=== PATIENT | male | born 1955 | race Caucasian/White ===

== ENCOUNTER 2016-05-22 10:21 | Emergency (ER) | payer OTHER ==
--- NOTE | ~2016-05-22 | EKG ---
PATIENT: NUBIA ACEVEDO UNIT #: [id number] Ventricular Rate: 80 BPM Atrial Rate: 80 BPM P-R Interval: 176 ms QRS Duration: 116 ms Q-T Interval: 426 ms QTC Calculation(Bezet): 491 ms P [place]: 68 degrees Calculated R [place]: 96 degrees Calculated T [place]: -35 degrees Diagnosis Line: Sinus rhythm with frequent Premature ventricular Diagnosis Line: complexes Diagnosis Line: Rightward axis Diagnosis Line: Possible Inferior infarct (cited on or before Diagnosis Line: 09-FEB-2016) Diagnosis Line: T wave abnormality, consider lateral ischemia Diagnosis Line: Abnormal ECG Diagnosis Line: When compared with ECG of 09-FEB-2016 07:27, Diagnosis Line: Non-specific change in ST segment in Lateral leads Diagnosis Line: T wave inversion more evident in Inferior leads Diagnosis Line: Inverted T waves have replaced nonspecific T wave Diagnosis Line: abnormality in Lateral leads Diagnosis Line: Confirmed by TED GUPTA MD ([id number]) on 05/23/2016 Diagnosis Line: 7:53:12 PM INTERPRETING MD: CANDY BISWAS
--- NOTE | ~2016-05-22 | CT4 ---
[facility] A Service of [facility] RADIOLOGY TEXT RESULTS PATIENT: NUBIA ACEVEDO LOCATION: [place] : 55 UNIT #: [id number] AGE: [address]: Twan Multani MD SEX: M ORDER DR: [id number] [facility]. [place], [place] [address] [id number] MR#: [id number] Acc #: [id number] NAME: NUBIA ACEVEDO : 1955 SEX: M STUDY DATE/TIME: 05/22/2016 11:31 UNIT: [facility] ROOM: STUDY DESCRIPTION: CT Abd and Pelv Wo Cont Attending Physician: Twan Multani M.D. Ordering Physician: Twan Multani M.D. Primary Care Physician: No Primary Care Physician MEDICAL IMAGING REPORT This report is preliminary unless electronic signature is present EXAM CT abdomen and pelvis without contrast INDICATIONS Nausea, vomiting, generalized abdominal pain and constipation for the past [address] of the abdomen and pelvis. TECHNIQUE This CT exam was performed with one or more of the following radiation dose reduction techniques: automatic control, adjustment of mA and/or kV according to patient size, and iterative reconstruction. COMPARISON None FINDINGS There are trace bilateral pleural effusions. Mild cardiomegaly. ABDOMEN WITHOUT CONTRAST: The liver spleen kidneys adrenal glands pancreas unremarkable. Cholelithiasis. Bowel loops are nondilated appendix is normal. No radiodense urinary system calculus or hydronephrosis. PELVIS WITHOUT CONTRAST: There is a trace amount of pelvic fluid. No pelvic mass or radiodense bladder mass. No aggressive appearing bone lesion. IMPRESSION 1. No acute findings. 2. Cholelithiasis. The gallbladder is contracted but shows no other finding to suggest active inflammation. [facility] A Service of [facility] RADIOLOGY TEXT RESULTS PATIENT: NUBIA ACEVEDO LOCATION: [facility] : 55 UNIT #: [id number] AGE: [address]: Twan Multani MD SEX: M ORDER DR: 3. Trace amount of fluid in the pelvis and small bilateral pleural effusions. Dictated by... Gordon Galdamez M.D. THIS IS AN ELECTRONICALLY VERIFIED REPORT Gordon Galdamez M.D. at 05/23/2016 6:51 AM CATHLEEN/eder TD: 05/22/2016 14:11 JOB #: [id number] MEDICAL IMAGING REPORT Page 1 of 1 COPY
[2016-05-22 10:02] LABS: POC - CKMB 2.4 ng/mL (0.0-7.9); POC - TROPONIN <0.05 ng/mL (<=0.05)
[2016-05-22 10:08] LABS: BASOPHIL# 0.1 X10e3 (0-0.3); BASOPHIL% 0.5 % (0-2.5); EOSINOPHIL# 0.1 X10e3 (0-0.7); EOSINOPHIL% 1.1 % (0.0-7.0); HEMATOCRIT 45.2 % (38.0-50.0); HEMOGLOBIN 14.3 gm/dL (13.0-16.0); LYMPHOCYTE# 0.9 X10e3 (1.0-3.5); LYMPHOCYTE% 8.4 % (17.0-45.0); MEAN CORPUSCULAR HEMOGLOBIN 27.6 PG (28-34); MEAN CORPUSCULAR HGB CONC 31.7 g/dL (30-36); MEAN PLATELET VOLUME 11.8 FL (6.5-11.5); MONOCYTE# 0.8 X10e3 (0-1.0); MONOCYTE% 7.1 % (3.0-12.0); NEUTROPHIL# 9.2 X10e3 (1.5-7.1); NEUTROPHIL% 82.9 % (40-75); RED CELL DISTRIBUTION WIDTH 15.9 % (11.0-15.5); WHITE BLOOD COUNT 11.1 X10e3 (4.0-10.5)
[~2016-05-22 10:21] MED LIST: ACETAMINOPHEN PO; ALDACTONE25 MG PO; ALLERCLEAR10 MG PO; AMOX TR-K CLV 81 TA1 PO; ASPIRIN81 M2 PO; ASPIRIN81 MG PO; BMP (LAB); BUMEX1 MG PO; BUMEX2 MG PO; CLARITIN10 M2 PO; COREG12.5 MG PO; COREG3.125 MG PO; COREG6.25 MG PO; COZAAR25 MG PO; DIGOX0.125 MG PO; DIGOXIN PO; DIGOXIN125 MCG PO; FUROSEMIDE40 MG PO; IBUPROFEN800 MG PO; IMDUR-ER30 M1 PO; JANUVIA PO; K-DUR20 ME1 PO; LANTUS100 U/ML SUBQ; LANTUS100 UNITS/ SUBQ; LEVAQUIN PO; LEVAQUIN750 M1 PO; LEVAQUIN750 MG PO; LEVEMIR SUBQ; LEVEMIR100 U/ML SUBQ; LISINOPRIL10 MG PO; LISINOPRIL5 MG PO; LOPRESSOR PO; MAG-OX 400400 M1 PO; MAG-OX 400400 MG PO; MAGNESIUM400 MG PO; METOCLOPRAMIDE H5 MG PO; METOPROLOL TAR25 MG PO; METOPROLOL TART25 MG PO; NEURONTIN100 MG PO; NIFEREX-150 CAP1 CAP PO; NOVOLOG7030 SUBQ; NYSTATIN5 ML PO; PERCOCET 5-3251 TAB PO; PERCOCET 5/321 UDTAB PO; POTASSIUM CHLO10 ME1 PO; PREDNISONE PO; PREDNISONE10 MG PO; PROAIR HFA8.5 GM IH; PROAIR HFA8.5 GM INH; SIMVASTATIN20 MG PO; SIMVASTATIN40 MG PO; SPIRIVA18 MCG INH; SYMBICORT 160/4.6 GM IH; SYMBICORT 160/4.6 GM INH; SYMBICORT INH; TESSALON PERLE100 M1 PO; ZESTRIL10 M1 PO; ZOCOR PO
[2016-05-22 10:28] LABS: DIFF IND YES
[2016-05-22 10:32] LABS: PLATELET ESTIMATE DECREASED (NORMAL)
[2016-05-22 10:33] LABS: ALBUMIN SERUM 3.4 g/dL (3.5-5.0); BILIRUBIN, DIRECT 0.4 mg/dL (0.0-0.2); BILIRUBIN,INDIRECT 1.2 mg/dL (0.0-0.9); BILIRUBIN,TOTAL 1.6 mg/dL (0.2-2.0); BUN/CREATININE RATIO 16.47; CALCIUM SERUM 8.7 mg/dL (8.4-10.2); CREATININE SERUM 1.7 mg/dL (0.6-1.4); GLOM FILT RATE Estimated 42.6 mL/min (>60); POTASSIUM 4.6 mmol/L (3.5-5.1); PROTEIN TOTAL SERUM 6.4 g/dL (6.0-8.3)
[2016-05-22 10:34] LABS: RBC NORMAL YES
[2016-05-22 10:35] LABS: PLATELET COUNT 90 X10e3 (140-420)
[2016-05-22 11:45] LABS: POC - CKMB 3.7 ng/mL (0.0-7.9); POC - TROPONIN <0.05 ng/mL (<=0.05)
[2016-05-22 12:14] LABS: URINE SOURCE CLEAN CATCH
[2016-05-22 12:20] LABS: URINE APPEARANCE CLEAR; URINE BLOOD NEG (NEG); URINE COLOR DK YELLOW; URINE GLUCOSE NEG (NEG); URINE KETONE TRACE (NEG); URINE LEUKOCYTE ESTERASE 1+ (NEG); URINE NITRATE NEG (NEG); URINE PROTEIN 2+ (NEG); URINE SPECIFIC GRAVITY 1.019 (1.003-1.035)
[2016-05-22 12:22] LABS: CULTURE INDICATED? YES; URINE BACTERIA AUWI NEG (NEGATIVE); URINE SQUAMOUS EPITHELIAL CELL OCC /[HPF]
[2016-05-22 12:34] LABS: URINE BILIRUBIN NEG (NEG)
[2016-05-22 12:36] LABS: U HYALINE CASTS AUWI 50-100 /[LPF]
[2016-05-22 12:37] LABS: URBCS1 AUWI 0-2 /[HPF] (0-2); URINE GRANULAR CAST 0-2 /[HPF]
[2016-05-22 12:42] LABS: URINE TRANSITIONAL EPI CELLS OCCAS /[HPF]
[2016-06-07] MEDS ORDERED: ASPIRIN ENTERI325 M1 PO
== END 2016-05-22 13:36 | disposition home or self-care (01) ==
LOC: CED 10:21
PROVIDERS: Emergency Medicine
DX: N30.00 Acute cystitis without hematuria (principal); E11.9 Type 2 diabetes mellitus without complications; I50.9 Heart failure, unspecified; F17.200 Nicotine dependence, unspecified, uncomplicated
CPT/HCPCS: 36415; 74176; 80048; 80076; 81003; 82150; 82553; 83690; 84484; 85025; 87086; 93005; 96374; 99284; J2405

== ENCOUNTER 2016-06-07 16:03 | Inpatient (IN) | payer OTHER ==
--- NOTE | ~2016-06-07 | CR63 ---
[facility] A Service of [facility] RADIOLOGY TEXT RESULTS PATIENT: NUBIA ACEVEDO LOCATION: [facility] 566- : 55 UNIT #: [id number] AGE: [address]: Griselda Villareal MD SEX: M ORDER DR: [id number] [facility] [address] [facility]. [place], [place] [address] [id number] I MR#: [id number] Acc #: [id number] NAME: NUBIA ACEVEDO : 1955 SEX: M STUDY DATE/TIME: 06/14/2016 0816 UNIT: [facility] ROOM: [facility] STUDY DESCRIPTION: CR Chest 2 View Attending Physician: Griselda Villareal M.D. Ordering Physician: Cecy Oshea A.P.R.N. Primary Care Physician: No Primary Care Physician MEDICAL IMAGING REPORT This report is preliminary unless electronic signature is present EXAM Chest, 2 views, 06/14/2016, 0816 hours. CLINICAL HISTORY 61-year-old man with shortness of air and cough for 1 week. History of COPD and diabetes and hypertension. COMPARISON 06/07/2016 FINDINGS Portable upright chest demonstrates median sternotomy change with moderate cardiomegaly, tortuous aorta, and pacer device unchanged. There is pulmonary venous distension and bilateral interstitial change, likely stable to increased from prior exam. Findings suggest an element of edema. No effusion seen. IMPRESSION Stable moderate cardiomegaly and pacer device. There is pulmonary venous distension and bilateral interstitial change similar to 06/07/2016. This could represent chronic change or recurrent interstitial edema. There is no airspace edema or effusion seen. Dictated by... Elda Jackson M.D. THIS IS AN ELECTRONICALLY VERIFIED REPORT Elda Jackson M.D. at 06/14/2016 2:29 PM GARRETT/lev TD: 06/14/2016 14:04 [facility] A Service of [facility] RADIOLOGY TEXT RESULTS PATIENT: NUBIA ACEVEDO LOCATION: [facility] 566-01 : 55 UNIT #: [id number] AGE: [address]: Griselda Villareal MD SEX: M ORDER DR: JOB #: [id number] MEDICAL IMAGING REPORT Page 1 of 1 COPY
--- NOTE | ~2016-06-07 | EKG ---
PATIENT: NUBAI ACEVEDO UNIT #: [id number] Ventricular Rate: 85 BPM Atrial Rate: 85 BPM P-R Interval: 190 ms QRS Duration: 120 ms Q-T Interval: 406 ms QTC Calculation(Bezet): 483 ms P [place]: 64 degrees Calculated R [place]: 56 degrees Calculated T [place]: -35 degrees Diagnosis Line: Sinus rhythm with Premature ventricular complexes Diagnosis Line: T wave abnormality, consider anterolateral Diagnosis Line: ischemia Diagnosis Line: Abnormal ECG Diagnosis Line: When compared with ECG of 08-JUN-2016 06:00, Diagnosis Line: (unconfirmed) Diagnosis Line: No significant change was found Diagnosis Line: Confirmed by TED GUPTA MD ([id number]) on 06/09/2016 Diagnosis Line: 10:50:23 PM INTERPRETING MD: CANDY BISWAS
--- NOTE | ~2016-06-07 | CR72 ---
[facility] A Service of [facility] RADIOLOGY TEXT RESULTS PATIENT: NUBIA ACEVEDO LOCATION: [facility] 566-01 : 55 UNIT #: [id number] AGE: [address]: Griselda Villareal MD SEX: M ORDER DR: [id number] [facility] [address] [facility]. [place], [place] [address] [id number] I MR#: [id number] Acc #: [id number] NAME: NUBIA ACEVEDO : 1955 SEX: M STUDY DATE/TIME: 06/07/2016 15:30 UNIT: [facility] ROOM: 82060 STUDY DESCRIPTION: CR Chest Single View Portable Attending Physician: Griselda Villareal M.D. Ordering Physician: [facility] Primary Care Physician: No Primary Care Physician MEDICAL IMAGING REPORT This report is preliminary unless electronic signature is present EXAM Portable AP view of the chest 06/07/2016 COMPARISON February 08, 2016, September 02, 2015, March 29, 2015. HISTORY 61-year-old male with dyspnea today. Abnormal EKG at his physician's office today. History of hypertension and CABG. FINDINGS Dual lead left chest pacemaker/defibrillator device appears grossly stable without evidence of complication. No evidence of sternotomy dehiscence. Prior CABG again noted. Stable cardiomediastinal silhouette, likely with mild cardiomegaly. There may be dilatation of the main pulmonary artery as well, grossly stable. There are stable interstitial opacities throughout the lungs which may be chronic or may reflect mild pulmonary vascular congestion. No overt pulmonary edema. No significant pleural effusion. No evidence of acute consolidative pneumonia or pneumothorax. IMPRESSION 1. Grossly stable diffuse interstitial opacities throughout the lungs perhaps chronic in nature or reflecting mild pulmonary vascular congestion given the stable cardiomegaly. 2. Stable mild widening of the mediastinum, which may be secondary to enlargement of the pulmonary artery. It is actually noted that the patient had adenopathy in the AP window on CT of March 11, 2015. The main pulmonary artery is also dilated on that exam. On 2015 adenopathy appears stable to diminished in size from CT of February 23, 2014 in the AP window, favoring reactive lymph nodes. Clinical correlation recommended. 3. Prior CABG. [facility] A Service of [facility] RADIOLOGY TEXT RESULTS PATIENT: NUBIA ACEVEDO LOCATION: [facility] 566-01 : 55 UNIT #: [id number] AGE: [address]: Griselda Villareal MD SEX: M ORDER DR: Dictated by... Devin Alex M.D. THIS IS AN ELECTRONICALLY VERIFIED REPORT Devin Alex M.D. at 06/10/2016 2:47 PM LO/quentin TD: 06/07/2016 17:46 JOB #: [id number] MEDICAL IMAGING REPORT Page 1 of 1 COPY
--- NOTE | ~2016-06-07 | DS ---
Unit #: [id number] #: [id number] Patient: NUBIA ACEVEDO [id number] [address] [place], [place] [address] [id number] I MR#: [id number] NAME: NUBIA ACEVEDO ROOM: 566 Age: 61 Sex: M Admission Date: 06/07/2016 : 1955 Discharge Date: 06/15/2016 Attending Physician: Griselda Villareal M.D. Primary Care Physician: No Primary Care Physician DISCHARGE SUMMARY DISCHARGE DIAGNOSES 1. Hypotension. 2. Ischemic cardiomyopathy. 3. Acute on chronic systolic heart failure. 4. Chronic obstructive pulmonary disease exacerbation. 5. Nonsustained V tac. 6. History of AICD. 7. Pulmonary hypertension with RVSP 53 mmHg. 8. Possible obstructive sleep apnea. DISCHARGE MEDICATIONS 1. Magnesium oxide 200 mg b.i.d. 2. Neurontin 800 mg t.i.d. 3. Carvedilol 12.5 mg b.i.d. 4. Bumex 2 mg daily. 5. Lipitor 20 mg at bedtime. 6. Zestril 10 mg daily. 7. Aspirin 81 mg daily. 8. Plavix 75 mg daily. 9. Aldactone 12.5 mg daily. 10. Potassium 10 mEq daily. 11. Symbicort 160 mg 2 puffs b.i.d. HOSPITAL COURSE The patient is a 61-year-old male who was a regular office patient of Dr. Chakraborty. She sent him to the hospital because he did not look well. He states that he went to his appointment because he wanted to get rid of his water pills. He had had some increasing shortness of breath and abdominal distension for two days, as well as some lower extremity edema. He was started on IV Bumex 1 mg IV daily. His breathing improved. He had some periodic three-beat runs of nonsustained V tac. His beta aubree was increased. His potassium and magnesium were stable and he did have a TSH done that was mildly elevated. He had some leukocytosis. Urinalysis was negative. Chest x-ray was performed, that showed cardiomegaly with some venous distension. He had a VQ scan that showed a low likelihood of pulmonary embolus. He had a lower extremity Doppler that was negative for DVT. He was requiring oxygen and was seen by Dr. Jacobs with pulmonary, who gave him three doses of IV Solu-Medrol and placed him on Symbicort and duo-nebs. Echocardiogram this admission showed grade 2 diastolic dysfunction, mild left ventricular hypertrophy. The left ventricular side was normal. The left ventricular systolic function was severely reduced with a left ventricular ejection fraction of 25%. There was a flattened septum in systole and diastole, consistent with right ventricular pressure volume overload. The right ventricle was mildly dilated with mildly Unit #: [id number] #: [id number] Patient: NUBIA ACEVEDO reduced RV function. This brought us to rule out pulmonary embolus with VQ scan. He had moderate tricuspid valve regurgitation with RVSP of 53 mmHg, consistent with moderate pulmonary hypertension. He also had a moderate to severe eccentric mitral valve regurgitation. The patient is euvolemic. He is off oxygen. He does not require home oxygen. FOLLOWUP 1. He is to follow up with Dr. Jacobs in the office as outpatient. 2. He is to follow up with his primary hat maker as an outpatient for his mitral valve regurgitation and medical management. 3. Follow up with primary care physician in a week for hypothyroidism. Dictated by... Deisi Pool APRN for Yusuf Tong TD: 06/16/2016 09:42 JOB #: [id number] DISCHARGE SUMMARY Page 1 of 1 X X DISCHARGE SUMMARY
--- NOTE | ~2016-06-07 | EKG ---
PATIENT: NUBIA ACEVEDO UNIT #: [id number] Ventricular Rate: 93 BPM Atrial Rate: 93 BPM P-R Interval: 192 ms QRS Duration: 112 ms Q-T Interval: 406 ms QTC Calculation(Bezet): 504 ms P [place]: 59 degrees Calculated R [place]: 18 degrees Calculated T [place]: -4 degrees Diagnosis Line: Sinus rhythm with frequent Premature ventricular Diagnosis Line: complexes Diagnosis Line: Nonspecific T wave abnormality Diagnosis Line: Prolonged QT Diagnosis Line: Abnormal ECG Diagnosis Line: When compared with ECG of 22-MAY-2016 09:36, Diagnosis Line: Nonspecific T wave abnormality has replaced Diagnosis Line: inverted T waves in Inferior leads Diagnosis Line: T wave inversion no longer evident in Lateral Diagnosis Line: leads Diagnosis Line: Confirmed by AZRA GARAY MD ([id number]) on Diagnosis Line: 06/09/2016 8:44:54 AM INTERPRETING MD: HAMIDA
--- NOTE | ~2016-06-07 | TH ---
Unit #: [id number] #: [id number] Patient: NUBIA ACEVEDO [id number] [address] [address] [id number] I MR#: [id number] NAME: NUBIA ACEVEDO : 1955 SEX: M STUDY DATE/TIME: 06/10/2016 UNIT: [facility] ROOM: 566 STUDY DESCRIPTION: Attending Physician: Griselda Villareal M.D. CARDIOLOGY REPORT EXAM Resting images only. PROCEDURE Cardiolite 12 mCi was injected. Images were obtained in horizontal and vertical long axis and short axis views. The resting images show severely decreased isotope activity involving the inferior wall. The left ventricle is extremely dilated. CONCLUSION 1. The stress portion of the test was cancelled. 2. The rest images show a severely enlarged left ventricle with decreased isotope activity in the inferior wall. Dictated by... Yusuf Shah TD: 06/10/2016 16:25 JOB #: [id number] CARDIOLOGY REPORT Page 1 of 1 X Griselda Villareal MD <ELECTRONICALLY SIGNED> 08/31/16 1429 CARDIOLOGY REPORT
--- NOTE | ~2016-06-07 | CO ---
Unit #: [id number] #: [id number] Patient: NUBIA ACEVEDO [id number] [facility]. [place], [place] [address] [id number] I MR#: [id number] NAME: NUBIA ACEVEDO ROOM: 566 Age: 61 Sex: M Admission Date: 06/07/2016 : 1955 Attending Physician: Griselda Villareal M.D. Consultation Date: 06/14/2016 CONSULTATION REPORT REASON FOR CONSULTATION Shortness of breath, rule out component of COPD. HISTORY OF PRESENT ILLNESS The patient is a 61-year-old gentleman, who has a history of severe heart disease including coronary artery disease, severe left ventricular dysfunction with an EF of 25%, and mitral regurgitation. He has had increasing shortness of breath. It is primarily dyspnea on exertion. He apparently was seen in Dr. Chakraborty's office and EKG was abnormal and asked to come to the hospital. He has significant heart failure and has been diuresed. He said he had a lot of abdominal and lower extremity swelling and that has improved, but he remains dyspneic on exertion somewhat more than his usual status. He does wheeze on occasion, primarily at night. He does produce white sputum primarily in the mornings. He denies chest pain, hemoptysis, or fever. PAST MEDICAL HISTORY Remarkable for ischemic cardiomyopathy with an EF of about 25%. He had a recent echocardiogram with RVSP estimated at 53. He has moderate to severe mitral regurgitation, mildly calcified aortic valve. He has a history of coronary artery disease, hypertension, hyperlipidemia, and diabetes. There was mention of obstructive sleep apnea, but he did not mention that to me. MEDICATIONS At home Plavix, Coreg, Bumex, Neurontin, aspirin, Plavix, Coreg, Bumex. He has an albuterol inhaler. He takes maybe b.i.d. and a nebulizer that he rarely takes. He is not on oxygen. ALLERGIES Tylenol, unknown reaction. SOCIAL HISTORY He smokes and has for most of his life, although he has quit intermittently. FAMILY HISTORY No familial lung disease. REVIEW OF SYSTEMS No fever, chills, weight loss. No chest pain or palpitations. He has had this abdominal "swelling" and that has improved. No melena, hematochezia, hematemesis, hematuria, dysuria, focal weakness, paresthesias. He has had Unit #: [id number] #: [id number] Patient: NUBIA ACEVEDO some leg swelling, but that has improved. No real leg pain. No pleurisy or hemoptysis. Further review of systems negative. He does snore. PHYSICAL EXAMINATION GENERAL: Reveals a patient, who is comfortable, lying in bed. VITAL SIGNS: He is afebrile. Pulse 79, respiratory rate is 18, blood pressure is 102/72. 5 foot 9 and 205 pounds. His weight is remarkably stable since admission. HEENT: Pupils are equal, round, and reactive to light. Sclerae anicteric. Head atraumatic. NECK: Supple. No supraclavicular or cervical adenopathy appreciated. Jugular venous pressures are elevated. He then at approximately 50 degree angle in bed. CHEST: No definite wheeze, stridor, or consolidation. He does have decreased breath sounds. CARDIAC: Reveals regular rate and rhythm. Loud systolic murmur throughout his precordium. ABDOMEN: Soft and nontender. There is some dullness. Could have some ascites, certainly not tense ascites. EXTREMITIES: Reveal no clubbing, cyanosis, or edema. No calf tenderness. SKIN: Warm and dry without rash or diaphoresis. Mucous membranes are moist. He has a Mallampati class III oropharynx. DIAGNOSTIC STUDIES LABORATORY RESULTS: Reveals echo as above. Creatinine is 1.6. BNP 458. INR was normal. D-dimer mildly elevated at 546. CBC essentially normal except for platelet count of 82. He has had thrombocytopenia in the past. Of note, sputum in March of this year was normal charli. IMAGING STUDIES: Chest x-ray, fairly significant cardiomegaly. I do not appreciate any acute infiltrates. Formal report is pending. V/Q scan was personally reviewed. He does have occasional subsegmental defect on the perfusion, but it is matched with ventilation. Ventilation to my review is consistent with emphysema. Preliminary report is low probability. Rhythm strips are sinus. IMPRESSION Shortness of breath, most likely, major component is cardiac with his severe cardiomyopathy and valvular heart disease. I suspect he does have some degree of chronic obstructive pulmonary disease with his longstanding tobacco use, wheezing, and sputum production. Other problems include chronic kidney disease, thrombocytopenia, coronary artery disease, diabetes, hyperlipidemia, hypertension, etc. I also believe he has sleep apnea with his snoring and cardiomyopathy and pulmonary hypertension with an estimated RVSP of 53. PLAN Maximize pulmonary status. A very brief course of steroids. Add inhaled corticosteroids/long-acting beta agonist. Continue albuterol as needed. Complete the workup for VTE with lower extremity venous Dopplers, but I suspect that will be negative. He will benefit from outpatient PFTs and nocturnal polysomnography. Certainly, no smoking is a great benefit. Of note, he had room air oxygenation checked and he had saturations at 96% resting, 93% with ambulation. Thank you very much for allowing me to participate in the care of Mr. Cordero. Unit #: [id number] #: [id number] Patient: NUBIA ACEVEDO Dictated by... Yusuf Clements/tasia TD: 06/15/2016 05:34 JOB #: [id number] CC: Griselda Villareal M.D. CONSULTATION REPORT Page 1 of 1 X Ulises Jacobs MD CONSULTATION REPORT
--- NOTE | ~2016-06-07 | HP ---
Unit #: [id number] #: [id number] Patient: NUBIA LLOYD [id number] [facility] [place]. [place], [place] [address] [id number] I MR#: [id number] NAME: NUBIA LLOYD ROOM: 566 Age: 61 Sex: M Admission Date: 06/07/2016 : 1955 Attending Physician: Griselda Villareal M.D. Primary Care Physician: No Primary Care Physician HISTORY AND PHYSICAL CHIEF COMPLAINT Abnormal EKG and shortness of air. HISTORY OF PRESENT ILLNESS Mr. Lloyd is a 61-year-old who went for a scheduled appointment at his PCP yesterday, Dr. Chakraborty, and patient states that the doctor told him he did not look well. She did an EKG and told him he needed to go to the hospital and be admitted. Patient states further that he went to his appointment because he wanted to get his water pill increased secondary to shortness of air and abdominal distention of 2 days' duration. Patient states that he has been, for the last few days, having orthopnea, dyspnea on exertion, and bilateral lower extremity edema as well as shortness of air. PAST MEDICAL HISTORY 1. COPD. 2. Ischemic cardiomyopathy with AICD. 3. Chronic systolic congestive heart failure with EF 25% to 30%. 4. History of arteriosclerotic heart disease and myocardial infarction with coronary artery bypass grafting x4 in July of 2012. 5. Hypertension. 6. Dyslipidemia. 7. History of stents to the LAD prior to bypass surgery. 8. Diabetes mellitus. 9. Obstructive sleep apnea. 10. Echo September 07, 2014, showed an EF of 25% to 30%, left atrium was severely dilated, right atrium moderately dilated, and rana-dw-soysdawo tricuspid regurgitation, severe mitral regurgitation, right ventricular systolic pressure 30-40. PAST MEDICAL HISTORY Coronary artery bypass grafting with BUTT to the LAD, saphenous vein graft to the PDA, ramus, and diagonal; history of coronary catheterization with PCI and stent to the LAD; AICD, [employer], in January [address] Dixon; and cervical neck surgery due to fracture. HOME MEDICATIONS 1. Plavix 75 mg daily. 2. Coreg 3.125 mg daily. 3. Bumex 1 mg daily. 4. Neurontin 100 mg 3 times daily. 5. Aspirin 325 mg daily. When patient was here in January, he was discharged at that time on Unit #: [id number] #: [id number] Patient: NUBIA LLOYDactone was well as lisinopril as well as Zocor of which are currently not listed as home medications. Patient gets his medications filled at the [facility] on [address]. We will ask that his home medications be verified. CODED ALLERGIES Tylenol. REVIEW OF SYSTEMS No fevers. No chills. Recent urinary tract infection last week and has finished antibiotic therapy. No difficulty swallowing. Positive for dyspnea on exertion and orthopnea. No chest discomfort. No bright red bleeding per rectum. No melena. No hematuria. Positive for lower extremity edema. No difficulties walking. PHYSICAL EXAMINATION GENERAL APPEARANCE: Well developed, well nourished, white male seen in nuclear medicine department in no acute distress. VITAL SIGNS: Temp 98.1; respirations 20; pulse 88; blood pressure 102/82, blood pressure prior to that 124/89 and 119/68; height 5 feet, 4 inches; weight 92.6 kg, and BMI 30. HEENT: Normocephalic and atraumatic. No xanthelasma. Pupils are equal, round, and reactive to light. Extraocular movements intact. NECK: Jugular full. LUNGS: Few crackles in bases. Right base with an expiratory wheeze. HEART: S1 and S2. No S3 or S4. Soft murmur. No lift. PMI nondisplaced. ABDOMEN: Slightly distended. Soft and nontender. EXTREMITIES: Bilateral lower extremity edema, 1+ pitting. Pulses, 2+, bilaterally. SKIN: No rash. SPINE: No scoliosis. DIAGNOSTIC STUDIES IMAGING: Chest x-ray shows grossly stable diffuse interstitial opacities throughout the lungs, perhaps chronic in nature, or reflecting mild pulmonary vascular congestion. Stable mild widening of the mediastinum, which may be secondary to enlargement of the pulmonary artery. Prior CABG. LABORATORY: Chemistry: Sodium 134, potassium 4, chloride 100, CO2 28, BUN 30, creatinine 1.3, glucose 157, magnesium 2, total protein 7.5, albumin 4.1, total bili 1.6, bili direct 0.3, bili indirect 1.3, AST 22, ALT 16, alk phos 103. Troponin 0.05 and 0.05. Cholesterol 175, triglycerides 100, LDL 136, and HDL 19. TSH 7.43. Patient had a TSH done in August of 2015 and, at that time, it was 2.3. PT 12.2, INR 1.2, and PTT 25.3. Point of care troponin less than 0.05. Hemoglobin 14.7, hematocrit 45.6, white blood cell count 11.5, and platelet count 100. History of platelet count 90 in May of 2016 and 121 February 09. ASSESSMENT AND PLAN 1. Acute on chronic systolic congestive heart failure with fluid (1) volume overload. We will add Bumex 1 mg IV twice daily. Patient stated he is feeling better since he received an IV shot in the emergency room. Resting stress portion was done today. Stress portion of test cancelled to be completed at a later date. 2. PVCs with nonsustained VT per monitor, 3 beats. Patient has normal potassium and normal magnesium. We will increase his beta-aubree. 3. Elevated TSH at 7.42. We will add a T3 and T4 to the blood in the lab. Patient appears to have hypothyroidism. 4. Thrombocytopenia. Unit #: [id number] #: [id number] Patient: NUBIA LLOYD 5. Leukocytosis. We will check his urine, BMP, and CBC in the a.m. Urinalysis now. Add free T3 and T4 to blood in lab. Patient is on DVT Lovenox 40 mg daily. We will also decrease his aspirin down to 81 mg daily. Again, we will have his home med rec reconciled with the Cristhian Watkins. to follow for any further recommendations. We will also get a 2D echocardiogram. Dictated by Mignon Aggarwal A.P.R.N. for Cornel Piper M.D. KENYATTA/jeffrey TD: 06/08/2016 10:21 JOB #: [id number] HISTORY AND PHYSICAL Page 1 of 1 X X HISTORY AND PHYSICAL
--- NOTE | ~2016-06-07 | EKG ---
PATIENT: NUBIA ACEVEDO UNIT #: [id number] Ventricular Rate: 92 BPM Atrial Rate: 92 BPM P-R Interval: 188 ms QRS Duration: 110 ms Q-T Interval: 374 ms QTC Calculation(Bezet): 462 ms P [place]: 69 degrees Calculated R [place]: 58 degrees Calculated T [place]: -31 degrees Diagnosis Line: Sinus rhythm with frequent Premature ventricular Diagnosis Line: complexes Diagnosis Line: Nonspecific ST and T wave abnormality Diagnosis Line: Prolonged QT Diagnosis Line: Abnormal ECG Diagnosis Line: When compared with ECG of 07-JUN-2016 15:47, Diagnosis Line: (unconfirmed) Diagnosis Line: No significant change was found Diagnosis Line: Confirmed by AZRA GARAY MD ([id number]) on Diagnosis Line: 06/09/2016 8:50:16 AM INTERPRETING MD: HAMIDA
--- NOTE | ~2016-06-07 | NM69 ---
[facility] A Service of [facility] RADIOLOGY TEXT RESULTS PATIENT: NUBIA ACEVEDO LOCATION: [facility] 566 : 55 UNIT #: [id number] AGE: [address]: Griselda Villareal MD SEX: M ORDER DR: [id number] [facility] [address]. [place], [place] [address] [id number] I MR#: [id number] Acc #: [id number] NAME: NUBIA ACEVEDO : 1955 SEX: M STUDY DATE/TIME: 06/14/2016 8:47 UNIT: [facility] ROOM: [facility] STUDY DESCRIPTION: NM Pulm Vent and Perf Attending Physician: Griselda Villareal M.D. Ordering Physician: Cecy Oshea A.P.R.N. Primary Care Physician: Primary Care Physician No MEDICAL IMAGING REPORT This report is preliminary unless electronic signature is present EXAM Ventilation-perfusion lung scan date 06/14/2016 HISTORY Short of air particularly on exertion for about 1 week, elevated D-dimer. Cough. PROCEDURE Study performed with 28.9 mCi technetium 99m DTPA aerosol by inhalation followed by 5.1 mCi technetium 99m MAA IV. FINDINGS Accompanying chest radiograph shows vascular congestion but no focal infiltrate or effusion. Ventilation and perfusion images both show mild heterogeneity without segmental defect. IMPRESSION Low likelihood ratio for pulmonary embolism. Dictated by... Ezio Caro M.D. THIS IS AN ELECTRONICALLY VERIFIED REPORT Ezio Caro M.D. at 06/17/2016 10:33 AM JUMA/jose rafael TD: 06/14/2016 11:35 JOB #: [id number] MEDICAL IMAGING REPORT Page 1 of 1 COPY
--- NOTE | ~2016-06-07 | US84 ---
[id number] [facility]. [facility] [address]. [place], [place] [address] [id number] I MR#: [id number] Acc #: [id number] NAME: NUBIA ACEVEDO : 1955 SEX: M STUDY DATE/TIME: 06/14/2016 12:18 UNIT: [facility] ROOM: 566 STUDY DESCRIPTION: US LE Veins Complete Juan Manuel Stdy Attending Physician: Griselda Villareal M.D. Ordering Physician: Ulises Jacobs M.D. Primary Care Physician: Primary Care Physician No MEDICAL IMAGING REPORT This report is preliminary unless electronic signature is present EXAM Bilateral lower extremity venous Doppler 06/14/2016 HISTORY Bilateral leg pain and swelling for 7 years with shortness of air for 1 week. COMPARISON None. TECHNIQUE Venous ultrasound examination of both lower extremities was performed using grayscale, spectral Doppler and color flow Doppler imaging. FINDINGS The examination is negative. There is no evidence of deep venous thrombus from the groin to the lower calf bilaterally. Visualized greater saphenous veins are also patent. IMPRESSION Negative examination. No evidence of lower extremity deep venous thrombosis. Dictated by... Ezio Caro M.D. THIS IS AN ELECTRONICALLY VERIFIED REPORT Ezio Caro M.D. at 06/17/2016 10:34 AM JUMA/james TD: 06/14/2016 14:34 JOB #: [id number] MEDICAL IMAGING REPORT Page 1 of 1 COPY
[2016-06-07 15:50] LABS: POC - CKMB 2.7 ng/mL (0.0-7.9); POC - TROPONIN <0.05 ng/mL (<=0.05)
[2016-06-07 16:03] LABS: BASOPHIL% 0.3 % (0-2.5); EOSINOPHIL# 0.1 X10e3 (0-0.7); EOSINOPHIL% 0.9 % (0.0-7.0); HEMATOCRIT 45.6 % (38.0-50.0); HEMOGLOBIN 14.7 gm/dL (13.0-16.0); LYMPHOCYTE# 0.9 X10e3 (1.0-3.5); LYMPHOCYTE% 7.4 % (17.0-45.0); MEAN CELL VOLUME 86.4 FL (83-96); MEAN CORPUSCULAR HEMOGLOBIN 27.8 PG (28-34); MEAN CORPUSCULAR HGB CONC 32.2 g/dL (30-36); MEAN PLATELET VOLUME 11.9 FL (6.5-11.5); MONOCYTE# 0.8 X10e3 (0-1.0); MONOCYTE% 7.2 % (3.0-12.0); NEUTROPHIL# 9.7 X10e3 (1.5-7.1); NEUTROPHIL% 84.2 % (40-75); RED BLOOD COUNT 5.28 X10e (3.90-5.60); RED CELL DISTRIBUTION WIDTH 15.5 % (11.0-15.5); WHITE BLOOD COUNT 11.5 X10e3 (4.0-10.5)
[~2016-06-07 16:03] MED LIST changes: +ASPIRIN ENTERI325 M1 PO
[2016-06-07 16:05] LABS: INR 1.2; PARTIAL THROMBOPLASTIN TIME 25.3 SECONDS (23.5-31.3); PROTHROMBIN TIME (PATIENT) 12.2 SECONDS (9.6-11.5)
[2016-06-07 16:15] LABS: ALBUMIN SERUM 4.1 g/dL (3.5-5.0); BILIRUBIN, DIRECT 0.3 mg/dL (0.0-0.2); BILIRUBIN,INDIRECT 1.3 mg/dL (0.0-0.9); BILIRUBIN,TOTAL 1.6 mg/dL (0.2-2.0); BUN/CREATININE RATIO 23.84; CALCIUM SERUM 9.4 mg/dL (8.4-10.2); CREATININE SERUM 1.3 mg/dL (0.6-1.4); GLOM FILT RATE Estimated 58.9 mL/min (>60); PLATELET COUNT 100 X10e3 (140-420); POTASSIUM 3.6 mmol/L (3.5-5.1); PROTEIN TOTAL SERUM 7.5 g/dL (6.0-8.3)
[2016-06-07 16:16] LABS: DIFF IND NO
[2016-06-07] MEDS ORDERED: COREG3.125 M1 PO (17:34)
[2016-06-07] MEDS ORDERED: CLOPIDOGREL75 MG PO (17:34)
[2016-06-07] MEDS ORDERED: BUMEX1 MG PO (17:35)
[2016-06-07] MEDS ORDERED: MIRAPEX (17:35)
[2016-06-07 21:49] LABS: CK TOTAL 54 IU/L (36-174)
[2016-06-07] MEDS ORDERED: NEURONTIN100 MG PO (23:59)
[2016-06-08 04:11] LABS: BUN/CREATININE RATIO 23.07; CALCIUM SERUM 8.8 mg/dL (8.4-10.2); CREATININE SERUM 1.3 mg/dL (0.6-1.4); GLOM FILT RATE Estimated 58.9 mL/min (>60)
[2016-06-08 12:25] LABS: %MB 7.4 % (0.0-4.0)
[2016-06-08 12:31] LABS: FREE T3 3.5 pg/mL (2.5-3.9)
[2016-06-08 12:35] LABS: FREE THYROXIN (T4) 0.94 ng/dL (0.58-1.64)
[2016-06-08 13:00] LABS: URINE APPEARANCE CLEAR; URINE BILIRUBIN NEG (NEG); URINE BLOOD NEG (NEG); URINE COLOR YELLOW; URINE GLUCOSE NEG (NEG); URINE KETONE NEG (NEG); URINE LEUKOCYTE ESTERASE NEG (NEG); URINE NITRATE NEG (NEG); URINE PH 5.5 (5-8); URINE PROTEIN 2+ (NEG); URINE SPECIFIC GRAVITY 1.011 (1.003-1.035)
[2016-06-08 13:02] LABS: URBCS1 AUWI 0-2 /[HPF] (0-2); URINE BACTERIA AUWI NEG (NEGATIVE); UWBCS1 AUWI 0-2 (0-5)
[2016-06-08 13:18] LABS: CULTURE INDICATED? NO
[2016-06-08 13:20] LABS: URINE SQUAMOUS EPITHELIAL CELL OCCAS /[HPF]
[2016-06-09 11:49] LABS: ALBUMIN SERUM 3.6 g/dL (3.5-5.0); BUN/CREATININE RATIO 26.92; CALCIUM SERUM 8.6 mg/dL (8.4-10.2); CREATININE SERUM 1.3 mg/dL (0.6-1.4); GLOM FILT RATE Estimated 58.9 mL/min (>60); PROTEIN TOTAL SERUM 6.7 g/dL (6.0-8.3)
[2016-06-10 05:47] LABS: HEMOGLOBIN 13.4 gm/dL (13.0-16.0); MEAN CELL VOLUME 86.1 FL (83-96); MEAN CORPUSCULAR HEMOGLOBIN 28.1 PG (28-34); MEAN CORPUSCULAR HGB CONC 32.6 g/dL (30-36); MEAN PLATELET VOLUME 12.3 FL (6.5-11.5); RED BLOOD COUNT 4.76 X10e (3.90-5.60); RED CELL DISTRIBUTION WIDTH 15.9 % (11.0-15.5); WHITE BLOOD COUNT 9.4 X10e3 (4.0-10.5)
[2016-06-10 07:04] LABS: BUN/CREATININE RATIO 28.33; CALCIUM SERUM 8.7 mg/dL (8.4-10.2); CREATININE SERUM 1.2 mg/dL (0.6-1.4); GLOM FILT RATE Estimated 64.9 mL/min (>60)
[2016-06-11 06:24] LABS: HEMATOCRIT 45.6 % (38.0-50.0); HEMOGLOBIN 14.8 gm/dL (13.0-16.0); MEAN CELL VOLUME 86.8 FL (83-96); MEAN CORPUSCULAR HEMOGLOBIN 28.1 PG (28-34); MEAN CORPUSCULAR HGB CONC 32.4 g/dL (30-36); MEAN PLATELET VOLUME 12.2 FL (6.5-11.5); RED BLOOD COUNT 5.26 X10e (3.90-5.60); RED CELL DISTRIBUTION WIDTH 15.8 % (11.0-15.5); WHITE BLOOD COUNT 9.5 X10e3 (4.0-10.5)
[2016-06-11 07:34] LABS: BUN/CREATININE RATIO 21.42; CALCIUM SERUM 9.2 mg/dL (8.4-10.2); CREATININE SERUM 1.4 mg/dL (0.6-1.4); GLOM FILT RATE Estimated 53.9 mL/min (>60); POTASSIUM 4.3 mmol/L (3.5-5.1)
[2016-06-12 10:56] LABS: BUN/CREATININE RATIO 23.57; CALCIUM SERUM 8.7 mg/dL (8.4-10.2); CREATININE SERUM 1.4 mg/dL (0.6-1.4); GLOM FILT RATE Estimated 53.9 mL/min (>60); MAGNESIUM 2.1 mg/dL (1.6-3.0); POTASSIUM 4.3 mmol/L (3.5-5.1)
[2016-06-13 07:31] LABS: BUN/CREATININE RATIO 25.62; CALCIUM SERUM 8.6 mg/dL (8.4-10.2); CREATININE SERUM 1.6 mg/dL (0.6-1.4); GLOM FILT RATE Estimated 45.8 mL/min (>60); POTASSIUM 4.3 mmol/L (3.5-5.1)
[2016-06-14 06:29] LABS: BUN/CREATININE RATIO 26.25; CREATININE SERUM 1.6 mg/dL (0.6-1.4); GLOM FILT RATE Estimated 45.8 mL/min (>60); POTASSIUM 5.1 mmol/L (3.5-5.1)
[2016-06-15 07:24] LABS: BUN/CREATININE RATIO 34.61; CREATININE SERUM 1.3 mg/dL (0.6-1.4); GLOM FILT RATE Estimated 58.9 mL/min (>60); POTASSIUM 5.2 mmol/L (3.5-5.1)
[2016-06-15] MEDS ORDERED: MAGOX 400400 MG PO (11:55)
[2016-06-15] MEDS ORDERED: SYNTHROID25 MCG PO (11:58)
[2016-06-15] MEDS ORDERED: KCL PO (11:59)
[2016-06-15] MEDS ORDERED: LIPITOR20 MG PO (11:59)
[2016-06-15] MEDS ORDERED: COREG12.5 MG PO (12:00)
[2016-06-15] MEDS ORDERED: SYMBICORT INH (12:01)
[2016-06-15] MEDS ORDERED: ALDACTONE PO (12:01)
[2016-06-15] MEDS ORDERED: PROAIR HFA8.5 GM INH (12:03)
[2016-06-15] MEDS ORDERED: ZESTRIL5 MG PO (13:33)
== END 2016-06-15 14:26 | disposition home or self-care (01) | DRG 292 ==
LOC: CED 16:03 → CEDOF 17:05 → C5C 21:17
PROVIDERS: Emergency Medicine; Internal Medicine Cardiovascular Disease; Nurse Practitioner
PROC: B246ZZZ Ultrasonography of Right and Left Heart (ICD-10-PCS; principal; 2016-06-08)
DX: I11.0 Hypertensive heart disease with heart failure (principal); J44.1 Chronic obstructive pulmonary disease with (acute) exacerbation; I95.9 Hypotension, unspecified; D69.6 Thrombocytopenia, unspecified; I27.2 Other secondary pulmonary hypertension; Z95.1 Presence of aortocoronary bypass graft; I25.5 Ischemic cardiomyopathy; E78.5 Hyperlipidemia, unspecified; G47.33 Obstructive sleep apnea (adult) (pediatric); E11.9 Type 2 diabetes mellitus without complications; I25.2 Old myocardial infarction; I25.10 Atherosclerotic heart disease of native coronary artery without angina pectoris; Z95.5 Presence of coronary angioplasty implant and graft; Z79.82 Long term (current) use of aspirin; I50.23 Acute on chronic systolic (congestive) heart failure; I49.3 Ventricular premature depolarization; I08.1 Rheumatic disorders of both mitral and tricuspid valves; Z95.810 Presence of automatic (implantable) cardiac defibrillator; F17.210 Nicotine dependence, cigarettes, uncomplicated
CPT/HCPCS: 71010; 71020; 78451; 78582; 80048; 80053; 80061; 80076; 81003; 82550; 82553; 82947; 83036; 83735; 83880; 84132; 84439; 84443; 84481; 84484; 85025; 85027; 85379; 85610; 85730; 93005; 93306; 93970; 94640; 96374; 99291; A9500; A9540; A9567; J1650; J1815; J1940; J2260; J2270; J2785; J2920

== ENCOUNTER 2016-07-26 13:46 | Inpatient (IN) | payer OTHER ==
--- NOTE | ~2016-07-26 | EKG ---
PATIENT: NUBIA ACEVEDO UNIT #: [id number] Ventricular Rate: 75 BPM Atrial Rate: 75 BPM P-R Interval: 186 ms QRS Duration: 122 ms Q-T Interval: 412 ms QTC Calculation(Bezet): 460 ms P [place]: 64 degrees Calculated R [place]: 45 degrees Calculated T [place]: -118 degrees Diagnosis Line: Sinus rhythm with occasional Premature ventricular Diagnosis Line: complexes Diagnosis Line: Possible Inferior infarct (cited on or before Diagnosis Line: 26-JUL-2016) Diagnosis Line: T wave abnormality, consider lateral ischemia Diagnosis Line: Abnormal ECG Diagnosis Line: When compared with ECG of 26-JUL-2016 13:52, Diagnosis Line: (unconfirmed) Diagnosis Line: No significant change was found Diagnosis Line: Confirmed by JAUN BISWAS, MIKE ([id number]) on Diagnosis Line: 07/28/2016 10:46:23 AM INTERPRETING MD: DANAE
--- NOTE | ~2016-07-26 | DS ---
Unit #: [id number] #: [id number] Patient: NUBIA ACEVEDO [id number] [place], [place] [address] [id number] I MR#: [id number] NAME: NUBIA ACEVEDO ROOM: 559 Age: 61 Sex: M Admission Date: 07/26/2016 : 1955 Discharge Date: 07/30/2016 Attending Physician: Griselda Villareal M.D. Primary Care Physician: Fátima Chakraborty M.D. DISCHARGE SUMMARY DISCHARGE DIAGNOSES 1. Acute on chronic systolic congestive heart failure, last 2D echo June 08, 2016 showed an ejection fraction of 25%, moderate tricuspid regurgitation, [id number]-[id number] mitral regurgitation with elevated right ventricular systolic pressure 53 mmHg. 2. History of coronary artery disease with three-vessel coronary artery bypass grafting. 3. Automated implantable cardioverter defibrillator, [employer] device, in 2012. 4. History of nonsustained ventricular tachycardia. 5. Chronic kidney disease. 6. Hypertension. 7. Hyperlipidemia. 8. Diabetes mellitus type 2. 9. Hypothyroidism. 10. Chronic obstructive pulmonary disease. 11. Obstructive sleep apnea. 12. Former smoker. DISCHARGE MEDICATIONS 1. Albuterol one puff inhalation every four hours p.r.n. 2. Mag-Oxide 400 mg p.o. twice daily. 3. Neurontin 100 mg p.o. daily. 4. Atorvastatin 20 mg p.o. at bedtime. 5. Carvedilol 12.5 mg p.o. twice daily. 6. Bumex 1 mg p.o. twice daily and take an additional 1 mg if increased shortness of breath and increased swelling. 7. Guaifenesin 600 mg tablet one tablet twice daily p.r.n. for congestion. 8. Lisinopril 2.5 mg p.o. daily at bedtime. New medications: 1. Novolin 70/30 at 10 units subcutaneous b.i.d. 2. Spironolactone 25 mg p.o. daily. 3. Klor-Con 20 mEq p.o. daily. 4. Levothyroxine 25 mcg p.o. daily. 5. Zaroxolyn 2.5 mg twice a week on Friday and Friday. HOSPITAL COURSE This is a 61-year-old white male, who used to go to [facility] but has not been down to the cardiology there in some time. He has ischemic cardiomyopathy, has a defibrillator. His EF is 25%. He had just been discharged from this hospital June 15 for treatment for also his acute on chronic systolic congestive heart failure. The patient presented on this Unit #: [id number] #: [id number] Patient: NUBIA ACEVEDO admission with complaints of increased shortness of breath, increased lower extremity edema and paroxysmal nocturnal dyspnea with orthopnea. He said these symptoms were worsening about three days prior to admission. He does admit to drinking more than his allotment of 2 L of fluid a day. He stated he had been compliant with his medication; however, he did not follow up with Dr. Everett on a followup appointment he had in the past. There was no discharge on his AICD. On admission, his BNP was elevated at 719. His chest x-ray did show congestive heart failure. He was initiated on IV Bumex. Dr. Guardado assisted with managing his COPD and obstructive sleep apnea. His cardiac enzymes remained negative. There was no acute ischemic changes on his EKG. Zaroxolyn was added for the removal of fluid. We optimized his heart failure medication. Patient from the last admission had been taken off his lisinopril because of some acute on chronic kidney disease, also because of some hypotension. During this admission, the patient's blood pressure has been fairly stable with blood pressures low 100s up to 120s systolically. His heart rate has remained in the 60s to 80s. Patient responded well to diuresing. His labs were followed closely. On day of discharge, he is in stable condition. He is ambulating in the halls without any complications. No complaints of dizziness, chest pain, or shortness of breath. Patient states he is ready to be discharged. Patient did have his oxygen checked on room air. He was saturating 95% which patient was consulted for cardiac rehab. They came to see him. They rescheduled him for September 02 at the [facility]. [facility] has been consulted to follow the patient at home for congestive heart failure. PHYSICAL EXAMINATION ON DAY OF DISCHARGE VITAL SIGNS: Blood pressure currently is 110/70, heart rate 70, respirations 18, temperature 98, O2 saturations is 95% on room air. HEART: S1, S2. Regular rate and rhythm. No clicks, murmurs, or rubs. LUNGS: Diminished, otherwise clear. ABDOMEN: Soft, nontender. EXTREMITIES: Pedal pulses are palpable. No pedal edema. DIAGNOSTIC STUDIES Latest laboratory and diagnostic data: LABORATORY: Glucose is 160, BUN 30, creatinine 1.1, eGFR 72.1, sodium 133, potassium 4.4, chloride 95, CO2 of 28, calcium 9.2. Total protein 7, albumin 3.4, bilirubin 1.3, AST 12, ALT 11, alkaline phosphatase 117. WBC 8.1, hemoglobin 13.4, hematocrit 42, platelets 91,000. IMAGING: Patient had bilateral lower extremity venous Doppler studies which were negative. CARDIOVASCULAR: Latest telemetry shows atrial paced underlying sinus rhythm with occasional premature ventricular complex. PLAN/INSTRUCTION 1. Patient will be discharged home, instructed to follow up with Dr. Everett, who he requests, on September 24, at 2 p.m. 2. I had a long discussion with the patient on compliancy and following up with the geopolitics teacher and needs regular defibrillator checks. He re-affirms that he will be compliant with following up in our office and wishes to start coming to our office. 3. Instructed to follow up with Dr. Chakraborty, his PCP, in one to two weeks. 4. Changes on his home medications: Increase his Bumex to 1 mg p.o. twice daily. Also, instructed to take an additional 1 mg if he has Unit #: [id number] #: [id number] Patient: NUBIA ACEVEDO increased shortness of breath or swelling. Also, add a low-dose WILLIE inhibitor. Lisinopril 2.5 mg p.o. daily at bedtime for his cardiomyopathy. Also, adding Zaroxolyn 2.5 mg p.o. twice daily on Friday and Friday to assist with his treatment of his systolic congestive heart failure. 5. [facility] has been consulted. They will be following the patient at home for his congestive heart failure. 6. CHF education provided to patient. 7. Patient is going to be going to cardiac rehab and was rescheduled for September 02 at [facility]. Dictated by... Radha E. Strong, A.P.Yusuf Bustos TD: 07/31/2016 09:43 JOB #: [id number] DISCHARGE SUMMARY Page 1 of 1 X Radha Strong APRN DISCHARGE SUMMARY
--- NOTE | ~2016-07-26 | EKG ---
PATIENT: NUBIA ACEVEDO UNIT #: [id number] Ventricular Rate: 75 BPM Atrial Rate: 75 BPM P-R Interval: 188 ms QRS Duration: 114 ms Q-T Interval: 434 ms QTC Calculation(Bezet): 484 ms P [place]: 70 degrees Calculated R [place]: 42 degrees Calculated T [place]: -158 degrees Diagnosis Line: Sinus rhythm with occasional Premature ventricular Diagnosis Line: complexes Diagnosis Line: Possible Inferior infarct (cited on or before Diagnosis Line: 26-JUL-2016) Diagnosis Line: Abnormal ECG Diagnosis Line: When compared with ECG of 09-JUN-2016 07:07, Diagnosis Line: No significant change was found Diagnosis Line: Confirmed by JAUN BISWAS, MIKE ([id number]) on Diagnosis Line: 07/28/2016 10:41:26 AM INTERPRETING MDJose M FINK
--- NOTE | ~2016-07-26 | HP ---
Unit #: [id number] #: [id number] Patient: NUBIA ACEVEDO [id number] [facility]. [address] [place], [place] [address] [id number] I MR#: [id number] NAME: NUBIA ACEVEDO ROOM: 559 Age: 61 Sex: M Admission Date: 07/26/2016 : 1955 Attending Physician: Griselda Villareal M.D. Primary Care Physician: Fátima Chakraborty M.D. HISTORY AND PHYSICAL HISTORY OF PRESENT ILLNESS This is a 61-year-old white male who is known to our group who has a history of coronary artery disease where he had a non-ST elevation myocardial infarction in 2012 with subsequent coronary artery bypass graft x4. He had a previous myocardial infarction in 1991 and again in 2001 where he underwent PCI and stent placement. He is known to have nonsustained ventricular tachycardia and ischemic cardiomyopathy and underwent AICD implantation also in 2012. He has chronic systolic heart failure, hypertension, hyperlipidemia and COPD for which he is on home oxygen. The patient presents to the emergency room with the complaint of shortness of breath, lower extremity edema, paroxysmal nocturnal dyspnea with three pillow orthopnea. He was in his usual state of health until two days ago when he developed shortness of breath. He has been drinking more than his allotment of two liters of fluid a day. He has been taking his medication on a persistent basis. He reports no discharge in his AICD implantation. He came to the emergency room for evaluation where he was found to have an elevated BNP of 719 with chest x-ray findings consistent with congestive heart failure. He was on 1 mg of Bumex at home but stated that his urinary output has diminished. He has recently been following with Dr. Guardado and is undergoing evaluation for obstructive sleep apnea. He denies any symptoms of angina, palpitations or dizziness. His troponin was negative with no acute EKG changes. The patient states that he had persistent nausea with vomiting nonbloody emesis during the night. PAST MEDICAL HISTORY 1. 2-D echocardiogram 06/08/2016 showed an ejection fraction of 25% with pseudonormalization. There is moderate tricuspid regurgitation and moderate to severe mitral regurgitation and right ventricular systolic pressure of 53 mmHg. 2. Myocardial infarction in 1991 status post PCI with stent to the circumflex artery. 3. Myocardial infarction status post PCI and stent to the LAD in 2001. 4. Non-ST elevation myocardial infarction in 07/2012, which showed three vessel coronary artery disease status post coronary artery bypass graft x4 with BUTT to the LAD, saphenous vein graft to the diagonal, saphenous vein graft to the ramus and saphenous vein graft to the PDA done at [facility] for Dr. Metz. 5. Nonsustained ventricular tachycardia. 6. Ischemic cardiomyopathy status post [facility] AICD per Dr. Dixon, 01/2013. Unit #: [id number] #: [id number] Patient: NUBIA ACEVEDO 7. Chronic systolic heart failure. 8. Hypertension. 9. Hyperlipidemia. 10. Diabetes mellitus type 2. 11. Hypothyroidism. 12. COPD on home oxygen. 13. Chronic kidney disease. 14. Obstructive sleep apnea being evaluated for CPAP. 15. Diabetes mellitus type 2. 16. Cholelithiasis. 17. Former smoker. PAST SURGICAL HISTORY 1. Coronary artery bypass graft. 2. AICD implantation. 3. Cervical neck surgery secondary to fracture. 4. Facial reconstruction. SOCIAL HISTORY The patient lives with friends. He quit smoking six months ago, previously smoked more than a pack of cigarettes a day. He denies illicit drug and alcohol use. FAMILY HISTORY Mother from myocardial infarction at age 81. ALLERGIES Acetaminophen. HOME MEDICATIONS 1. NovoLog 70/30 FlexPen 10 units subcu b.i.d. 2. Albuterol one puff q.4 hours p.r.n. 3. Levothyroxine 25 mcg daily. 4. Potassium chloride 20 mEq daily. 5. Aldactone 25 mg daily. 6. Carvedilol 12.5 mg b.i.d. 7. Magnesium oxide 400 mg b.i.d. 8. Bumex 1 mg daily. 9. Atorvastatin 20 mg q.h.s. 10. Neurontin 100 mg daily. REVIEW OF SYSTEMS CONSTITUTIONAL: Negative for fever or chills. Unsure of weight gain or weight loss. No fatigue or weakness. HEENT: No headache. No vision changes, difficulty with swallowing. No dizziness. CARDIOVASCULAR: The patient has no symptoms of angina. The patient denies palpitations. Positive for paroxysmal nocturnal dyspnea with three pillow orthopnea. No syncope or near syncope. RESPIRATORY: The patient reports dyspnea at rest. The patient has occasional nonproductive cough. No hemoptysis. GASTROINTESTINAL: No abdominal pain but complained of nausea and vomiting on bloody emesis. No hematochezia or melena. EXTREMITIES: Positive for lower extremity edema. PHYSICAL EXAMINATION GENERAL APPEARANCE: This is a mildly obese, 61-year-old, middle-aged white male who is in no acute respiratory distress. Unit #: [id number] #: [id number] Patient: NUBIA ACEVEDO VITAL SIGNS: Blood pressure 103/74. Heart rate 82. Temperature 98.3. BMI 30. NEUROLOGIC: He is awake, alert and oriented. There are no focal weakness. NECK: Trachea is midline. No thyromegaly or lymphadenopathy. No jugular venous distention. HEART: S1, S2. Heart sounds are normal. No murmurs. No rubs or clicks. Regular rate and rhythm. LUNGS: Diminished with fine rales both lung bases. Expiratory wheezes are noted. ABDOMEN: Soft, obese. Bowel sounds are present. No organomegaly. EXTREMITIES: 2+ lower extremity edema. DIAGNOSTIC STUDIES LABORATORY: Glucose 138, BUN 22, creatinine 1.3, sodium 130, potassium 4.0. Troponin less than 0.03. BNP 719. White count 8.1, hemoglobin 13.4, hematocrit 42.0, platelet count 91. IMAGING: Ultrasound of the bilateral lower extremity negative for deep vein thrombosis. Chest x-ray shows congestive heart failure. CARDIOVASCULAR: EKG: Sinus rhythm with a rate of 75 beats per minute but questionable old inferior infarct with Q waves noted in the inferior leads. There is T wave inversion in V5, V6, one in aVL, premature ventricular complex. IMPRESSION 1. Acute on chronic systolic heart failure with reduced ejection fraction of 25%. 2. Ischemic cardiomyopathy status post AICD. 3. History of nonsustained ventricular tachycardia status post coronary artery bypass graft x4 in 2013. 4. Hypertension. 5. Hyperlipidemia. 6. Diabetes mellitus type 2. 7. Nausea and vomiting, questionable etiology. 8. COPD. 9. Chronic kidney disease. PLAN 1. We will diurese the patient with IV diuretics. 2. We will Zaroxolyn one time for removal of fluid. 3. Optimize heart failure medications. We will start on low dose WILLIE inhibitor and monitor renal function. 4. Cardiac rehab consult. Dictated by Vivien FountainRYusuf Randolph/karyn TD: 07/27/2016 14:35 JOB #: [id number] Unit #: [id number] #: [id number] Patient: NUBIA ACEVEDO HISTORY AND PHYSICAL Page 1 of 1 X Mark Scott APRN HISTORY AND PHYSICAL
--- NOTE | ~2016-07-26 | US84 ---
[id number] [facility]. [facility] [address]. [place], [place] [address] [id number] I MR#: [id number] Acc #: [id number] NAME: NUBIA ACEVEDO : 1955 SEX: M STUDY DATE/TIME: 07/26/2016 16:36 UNIT: C5B ROOM: 559 STUDY DESCRIPTION: US LE Veins Complete Juan Manuel Stdy Attending Physician: Griselda Villareal M.D. Ordering Physician: Benitez Bynum M.D. Primary Care Physician: Fátima Chakraborty M.D. MEDICAL IMAGING REPORT This report is preliminary unless electronic signature is present EXAM Bilateral lower extremity venous duplex, 07/28/15 HISTORY Bilateral lower extremity pain and edema for 2 days, evaluate for deep vein thrombosis. TECHNIQUE Venous ultrasound examination of both lower extremities was performed using grayscale, spectral Doppler and color flow Doppler imaging. FINDINGS The examination is negative. There is no evidence of deep venous thrombus from the groin to the lower calf bilaterally. Visualized greater saphenous veins are also patent. IMPRESSION Negative examination. No evidence of lower extremity deep venous thrombosis. Dictated by... Guzman Holguin M.D. THIS IS AN ELECTRONICALLY VERIFIED REPORT Guzman Holguin M.D. at 07/29/2016 8:25 AM MISTY/saige TD: 07/26/2016 21:53 JOB #: [id number] MEDICAL IMAGING REPORT Page 1 of 1 COPY
--- NOTE | ~2016-07-26 | CR63 ---
[facility] A Service of [facility] RADIOLOGY TEXT RESULTS PATIENT: NUBIA ACEVEDO LOCATION: [facility] 55 : 55 UNIT #: [id number] AGE: [address]: Griselda Villareal MD SEX: M ORDER DR: [id number] [facility] [address] [place], [place] [address] [id number] I MR#: [id number] Acc #: [id number] NAME: NUBIA ACEVEDO : 1955 SEX: M STUDY DATE/TIME: 07/26/2016 16:24 UNIT: [facility] ROOM: [facility] STUDY DESCRIPTION: CR Chest 2 View Attending Physician: Griselda Villareal M.D. Ordering Physician: Benitez Bynum M.D. Primary Care Physician: Fátima Chakraborty M.D. MEDICAL IMAGING REPORT This report is preliminary unless electronic signature is present EXAM Two views chest, 07/26/2016. HISTORY Short of air. Short of air. Cough when lying down, bilateral lower extremity edema. Two days duration. TECHNIQUE AP radiograph of the chest is presented. COMPARISON 06/14/16 FINDINGS Status post median sternotomy and CABG. Cardiac pacemaker unchanged. Stable mild cardiac enlargement. Pulmonary vasculature is prominent but slightly less so than on prior examination. Mildly prominent peribronchial markings and central interstitial markings. Slightly less pronounced than on prior study. There is some linear interstitial markings in the periphery of the lung bases, right more so than left. Appearance suggests mild interstitial edema, probably cardiogenic in etiology. Less pronounced than on prior study. No dense airspace disease. Slight blunting of the left lateral costophrenic sulcus unchanged from prior study. This may reflect pleural thickening or persistent trace effusion. No pneumothorax. No suspicious nodule. Dictated by... Andry Guido M.D. [facility] A Service of [facility] RADIOLOGY TEXT RESULTS PATIENT: NUBIA ACEVEDO LOCATION: [facility] 5510-11 : 55 UNIT #: [id number] AGE: [address]: Griselda Villareal MD SEX: M ORDER DR: THIS IS AN ELECTRONICALLY VERIFIED REPORT Andry Guido M.D. at 07/31/2016 10:15 AM Magno TD: 07/26/2016 21:31 JOB #: [id number] MEDICAL IMAGING REPORT Page 1 of 1 COPY
[~2016-07-26 13:46] MED LIST changes: +ALDACTONE PO; +CLOPIDOGREL75 MG PO; +COREG3.125 M1 PO; +KCL PO; +LIPITOR20 MG PO; +MAGOX 400400 MG PO; +MIRAPEX; +SYNTHROID25 MCG PO; +ZESTRIL5 MG PO
[2016-07-26 14:49] LABS: BASOPHIL# 0.1 X10e3 (0-0.3); BASOPHIL% 0.6 % (0-2.5); EOSINOPHIL# 0.1 X10e3 (0-0.7); EOSINOPHIL% 0.9 % (0.0-7.0); HEMOGLOBIN 13.4 gm/dL (13.0-16.0); LYMPHOCYTE# 0.8 X10e3 (1.0-3.5); LYMPHOCYTE% 10.1 % (17.0-45.0); MEAN CELL VOLUME 85.5 FL (83-96); MEAN CORPUSCULAR HEMOGLOBIN 27.3 PG (28-34); MEAN CORPUSCULAR HGB CONC 31.9 g/dL (30-36); MEAN PLATELET VOLUME 11.8 FL (6.5-11.5); MONOCYTE# 0.4 X10e3 (0-1.0); MONOCYTE% 5.3 % (3.0-12.0); NEUTROPHIL# 6.8 X10e3 (1.5-7.1); NEUTROPHIL% 83.1 % (40-75); PLATELET COUNT 91 X10e3 (140-420); RED BLOOD COUNT 4.91 X10e (3.90-5.60); RED CELL DISTRIBUTION WIDTH 15.3 % (11.0-15.5); WHITE BLOOD COUNT 8.1 X10e3 (4.0-10.5)
[2016-07-26 15:02] LABS: DIFF IND YES
[2016-07-26 15:03] LABS: ALBUMIN SERUM 3.4 g/dL (3.5-5.0); BILIRUBIN, DIRECT 0.4 mg/dL (0.0-0.2); BILIRUBIN,INDIRECT 0.9 mg/dL (0.0-0.9); BILIRUBIN,TOTAL 1.3 mg/dL (0.2-2.0); BUN/CREATININE RATIO 14.28; CALCIUM SERUM 8.9 mg/dL (8.4-10.2); CREATININE SERUM 1.4 mg/dL (0.6-1.4); GLOM FILT RATE Estimated 53.9 mL/min (>60); POTASSIUM 4.2 mmol/L (3.5-5.1)
[2016-07-26 15:10] LABS: PLATELET ESTIMATE DECREASED (NORMAL); RBC NORMAL YES
[2016-07-26 15:22] LABS: POC - CKMB 1.5 ng/mL (0.0-7.9); POC - TROPONIN <0.05 ng/mL (<=0.05)
[2016-07-26] MEDS ORDERED: NOVOLOG MI100 UNIT/1 SUBQ (15:53)
[2016-07-26] MEDS ORDERED: LEVOTHYROXINE25 MCG PO (15:54)
[2016-07-26] MEDS ORDERED: ALBUTEROL17 GM INH (15:54)
[2016-07-26] MEDS ORDERED: ALDACTONE25 MG PO (15:55)
[2016-07-26] MEDS ORDERED: KLOR-CON PO (15:55)
[2016-07-26] MEDS ORDERED: CARVEDILOL12.5 MG PO (15:55)
[2016-07-26] MEDS ORDERED: BUMETANIDE1 MG PO (15:56)
[2016-07-26] MEDS ORDERED: MAGNESIUM400 MG PO (15:56)
[2016-07-26] MEDS ORDERED: ATORVASTATIN CA20 MG PO (15:57)
[2016-07-26] MEDS ORDERED: NEURONTIN100 MG PO ×2 (15:57)
[2016-07-26 17:40] LABS: POC - CKMB 1.2 ng/mL (0.0-7.9); POC - TROPONIN <0.05 ng/mL (<=0.05)
[2016-07-27 06:49] LABS: BUN/CREATININE RATIO 16.92; CALCIUM SERUM 8.6 mg/dL (8.4-10.2); CREATININE SERUM 1.3 mg/dL (0.6-1.4); GLOM FILT RATE Estimated 58.9 mL/min (>60)
[2016-07-28 07:29] LABS: BUN/CREATININE RATIO 23.57; CALCIUM SERUM 9.4 mg/dL (8.4-10.2); CREATININE SERUM 1.4 mg/dL (0.6-1.4); GLOM FILT RATE Estimated 53.9 mL/min (>60); POTASSIUM 4.3 mmol/L (3.5-5.1)
[2016-07-29 08:13] LABS: BUN/CREATININE RATIO 27.5; CALCIUM SERUM 8.8 mg/dL (8.4-10.2); CREATININE SERUM 1.2 mg/dL (0.6-1.4); GLOM FILT RATE Estimated 64.9 mL/min (>60)
[2016-07-30 06:58] LABS: BUN/CREATININE RATIO 27.27; CALCIUM SERUM 9.2 mg/dL (8.4-10.2); CREATININE SERUM 1.1 mg/dL (0.6-1.4); GLOM FILT RATE Estimated 72.1 mL/min (>60); POTASSIUM 4.4 mmol/L (3.5-5.1)
[2016-07-30] MEDS ORDERED: ZAROXYLYN PO (10:43)
[2016-07-30] MEDS ORDERED: ZESTRIL2.5 M1 PO (14:53)
== END 2016-07-30 15:06 | disposition home or self-care (01) | DRG 291 ==
LOC: CED 13:46 → CEDOF 18:35 → C5B 18:35 → CED 18:35 → C5B 18:35 → CEDOF 21:25 → C5B 07-30 15:06
PROVIDERS: Emergency Medicine; Internal Medicine Cardiovascular Disease; Nurse Practitioner
DX: I13.0 Hypertensive heart and chronic kidney disease with heart failure and stage 1 through stage 4 chronic kidney disease, or unspecified chronic kidney disease (principal); I50.23 Acute on chronic systolic (congestive) heart failure; I47.2 Ventricular tachycardia; Z99.81 Dependence on supplemental oxygen; E11.22 Type 2 diabetes mellitus with diabetic chronic kidney disease; I25.10 Atherosclerotic heart disease of native coronary artery without angina pectoris; I25.2 Old myocardial infarction; Z95.1 Presence of aortocoronary bypass graft; I08.1 Rheumatic disorders of both mitral and tricuspid valves; I25.5 Ischemic cardiomyopathy; E78.5 Hyperlipidemia, unspecified; J44.9 Chronic obstructive pulmonary disease, unspecified; Z95.810 Presence of automatic (implantable) cardiac defibrillator; N18.9 Chronic kidney disease, unspecified; E03.9 Hypothyroidism, unspecified; K80.20 Calculus of gallbladder without cholecystitis without obstruction; Z87.891 Personal history of nicotine dependence; Z79.4 Long term (current) use of insulin; R11.2 Nausea with vomiting, unspecified
CPT/HCPCS: 36415; 71020; 80048; 80076; 82553; 82947; 83880; 84484; 85025; 93005; 93970; 94640; 94664; 94760; 96374; 99291; J1650; J1815; J2405

== ENCOUNTER 2016-08-01 13:44 | Emergency (ER) | payer OTHER ==
[~2016-08-01 13:44] MED LIST changes: +ALBUTEROL17 GM INH; +ATORVASTATIN CA20 MG PO; +BUMETANIDE1 MG PO; +CARVEDILOL12.5 MG PO; +KLOR-CON PO; +LEVOTHYROXINE25 MCG PO; +NOVOLOG MI100 UNIT/1 SUBQ; +ZAROXYLYN PO; +ZESTRIL2.5 M1 PO
[2016-08-01 14:24] LABS: URINE SOURCE CLEAN CATCH
[2016-08-01 14:29] LABS: URINE APPEARANCE CLEAR; URINE BILIRUBIN NEG (NEG); URINE BLOOD NEG (NEG); URINE COLOR YELLOW; URINE GLUCOSE 500 MG/DL (NEG); URINE KETONE NEG (NEG); URINE LEUKOCYTE ESTERASE NEG (NEG); URINE NITRATE NEG (NEG); URINE PROTEIN 2+ (NEG); URINE SPECIFIC GRAVITY 1.011 (1.003-1.035); URINE UROBILINOGEN 0.2 MG/DL (NEG)
[2016-08-01 14:31] LABS: URBCS1 AUWI 0-2 /[HPF] (0-2); URINE BACTERIA AUWI NEG (NEGATIVE); URINE SQUAMOUS EPITHELIAL CELL NONE SEEN /[HPF]; UWBCS1 AUWI 0-2 (0-5)
[2016-08-01 14:46] LABS: CULTURE INDICATED? NO
== END 2016-08-01 14:28 | disposition home or self-care (01) ==
LOC: CED 13:44
PROVIDERS: Emergency Medicine
DX: N40.1 Benign prostatic hyperplasia with lower urinary tract symptoms (principal); R33.8 Other retention of urine; E11.9 Type 2 diabetes mellitus without complications; I10 Essential (primary) hypertension; J44.9 Chronic obstructive pulmonary disease, unspecified; Z95.1 Presence of aortocoronary bypass graft; F17.200 Nicotine dependence, unspecified, uncomplicated; Z88.5 Allergy status to narcotic agent; Z79.899 Other long term (current) drug therapy; Z79.4 Long term (current) use of insulin
CPT/HCPCS: 51702; 81003; 99283

== ENCOUNTER 2016-08-03 12:30 | Emergency (ER) | payer OTHER ==
--- NOTE | ~2016-08-03 | CR150 ---
[facility] A Service of [facility] RADIOLOGY TEXT RESULTS PATIENT: NUBIA ACEVEDO LOCATION: [facility] : 55 UNIT #: [id number] AGE: [address]: Bisi Castillo APRN SEX: M ORDER DR: [id number] [facility] [address] [place], [place] [address] [id number] E MR#: [id number] Acc #: [id number] NAME: NUBIA ACEVEDO : 1955 SEX: M STUDY DATE/TIME: 08/03/2016 14:24 UNIT: [facility] ROOM: STUDY DESCRIPTION: CR Hip Min 2 Views Lt Attending Physician: Bisi Castillo A.P.R.N. Ordering Physician: Ed Doctor [id number] [facility] Primary Care Physician: Fátima Chakraborty M.D. MEDICAL IMAGING REPORT This report is preliminary unless electronic signature is present EXAM Left hip 2 views, 08/03/2016 HISTORY Left hip pain status post fall last night with left hip numbness. FINDINGS Two views of the left hip demonstrate oblique lucency along the superior rim of the left acetabulum laterally which could reflect a nondisplaced fracture. Consider correlation with pelvic CT for further evaluation. The hip joints are normally maintained. There is no soft tissue abnormality. IMPRESSION Ill-defined oblique lucency involving the lateral aspect of the superior rim of the left acetabulum. I cannot exclude fracture in this region. Consider correlation with pelvic CT for further evaluation. STAT * RESULT Dictated by... Guzman Holguin M.D. THIS IS AN ELECTRONICALLY VERIFIED REPORT Guzman Holguin M.D. at 08/04/2016 6:24 AM Rose TD: 08/03/2016 15:08 JOB #: [id number] MEDICAL IMAGING REPORT Page 1 of 1 COPY
--- NOTE | ~2016-08-03 | CT107 ---
[facility] A Service of [facility] RADIOLOGY TEXT RESULTS PATIENT: NUBIA ACEVEDO LOCATION: [facility] : 55 UNIT #: [id number] AGE: [address]: Bisi Castillo APRN SEX: M ORDER DR: [id number] [facility] [address] [place], [place] [address] [id number] E MR#: [id number] Acc #: [id number] NAME: NUBIA ACEVEDO : 1955 SEX: M STUDY DATE/TIME: 08/03/2016 16:02 UNIT: [facility] ROOM: STUDY DESCRIPTION: CT Pelvis Wo Cont Attending Physician: Bisi Castillo A.P.R.N. Referring Physician: Adelso Pearson M.D. Ordering Physician: Yossi Alvarez M.D. Primary Care Physician: Fátima Chakraborty M.D. MEDICAL IMAGING REPORT This report is preliminary unless electronic signature is present EXAM CT pelvis without contrast. HISTORY Trauma, fell yesterday, complains of left hip pain. COMPARISON Left hip films, 08/03/2016. TECHNIQUE Axial images performed through the pelvis without contrast. Multiplanar reconstructed images reviewed at a workstation. This CT exam was performed with one or more of the following radiation dose reduction techniques: automatic exposure control, adjustment of mA and/or kV according to patient size, and iterative reconstruction. FINDINGS No acute fracture/deformity. Mild arthritic change of the SI joints. Small pneumatocyst posterior aspect right SI joint. There is fragmentation of the anterosuperior left acetabulum, and this is most likely degenerative in nature. Small amount of lucencies noted within the remaining acetabular margin. No evidence of an acute fracture. There is diminished head/neck offset within both hips, could represent a component of cam-type femoral acetabular impingement and this has been associated with fragmentation of the acetabular margin as a chronic finding. This small fragment measures about 6 mm greatest dimension. Pelvic and proximal thigh musculature appears normal. Internal pelvic structures unremarkable. IMPRESSION 1. No acute fracture/deformity. 2. Well corticated small fragment anterosuperior left acetabulum with a small amount of adjacent cystic change and sclerosis. 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 Dictated by... Hollis Edge M.D. THIS IS AN ELECTRONICALLY VERIFIED REPORT Hollis Edge M.D. at 08/05/2016 1:19 PM Patsy TD: 08/03/2016 18:36 JOB #: [id number] MEDICAL IMAGING REPORT Page 1 of 1 COPY
== END 2016-08-03 16:56 | disposition home or self-care (01) ==
LOC: CED 12:30 → CFTX 12:30
DX: S73.102A Unspecified sprain of left hip, initial encounter (principal); I11.0 Hypertensive heart disease with heart failure; I50.9 Heart failure, unspecified; I25.2 Old myocardial infarction; J44.9 Chronic obstructive pulmonary disease, unspecified; F17.210 Nicotine dependence, cigarettes, uncomplicated; Z95.1 Presence of aortocoronary bypass graft; W01.0XXA Fall on same level from slipping, tripping and stumbling without subsequent striking against object, initial encounter; Y92.009 Unspecified place in unspecified non-institutional (private) residence as the place of occurrence of the external cause
CPT/HCPCS: 72192; 73502; 99284